=== PATIENT | male | born 1975 ===

== ENCOUNTER 2021-03-14 09:03 | Outpatient (CLI) | payer BC, SELFPAY ==
--- NOTE | 2021-03-30 12:28 | WPDHOMESLEEP ---
Sleep Study - Home Unattended Date of Study: 03/14/21 Ordering Provider: Paola Choudhury, PARajiv Interpreting Provider: Nichol Florian MD Home Sleep Study Type: Apnea Link Air Height: 1.8 m Weight: 92.079 kg Body Mass Index: 28.3 Neck Circumference (inches): 15.5 [place]: 2 Reason for Sleep Study Excessive daytime fatigue Sleep History Luis Carlos Trimble is a 45 year old male who says that he feels worn out all the time, and this has been going on for more than 2 years. He occasionally awakens from sleep feeling short of breath. He rarely awakens at night with heartburn, belching or coughing. He constantly snores and it is loud enough that others complain about it. He occasionally has trouble sleeping with a cold. He does not wake up gasping for breath at night. He constantly has breathing problems at night observed by others. He rarely sweats excessively night. He does not notice his heart pounding or beating irregularly at night. He does not fall asleep during the day, does not fall asleep involuntarily or while driving. He does not have loss of muscle tone with strong emotion. 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 He does not feel paralyzed on waking or falling asleep. He does not have vivid dreamlike scenes upon awakening or falling asleep. He does not feel afraid to go to sleep. He does not have nightmares. He occasionally remembers his dreams. He constantly has racing thoughts. He rarely feels sad or depressed. He frequently has anxiety. He rarely has muscular tension. He rarely notices parts of his body jerking. He does not kick at night. He denies having crawling and aching feelings in his legs. He does not have any kind of leg pain at night. He does not have morning jaw pain. He occasionally grinds his teeth during sleep and occasionally is bothered by pain during the day. He does not wake up due to pain during the night. He occasionally wakes up feeling stiff in the morning. He does not wake up with sore or achy muscles. He does not wake up with pain in the neck and spine. He has fatigue. He reports a weight gain of 8 lb during the last year. Bedtime is 10:00 p.m. falling asleep within 30 minutes, typically waking 1 or 2 times at night, and he is able to return to sleep in 5 minutes. His morning wake up time is 4:45 a.m.. On weekends, he stays awake until 10:00 p.m. or as late as 12 midnight, and wakes at 6:00 a.m.. He does not generally take naps. He is drowsy in the morning for 1 hour. He feels better in the afternoon compared to the morning. Habits: Tobacco: quit 2 years ago. Caffeine 2 servings a day. No alcohol or recreational drugs. 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 terbinafine HCL 250 mg a day Sleep Procedure This test was performed using 4 channel monitoring including respiratory effort channel, snoring channel, heart rate channel, and oxygen saturation channel. This study was scored using [facility] guidelines. Sleep Architecture Not applicable for home sleep test. Respiratory Analysis The recording time is 6 hours 56 minutes. Evaluation time is 6 hours and 42 minutes. The apnea-hypopnea index is 13. He had 7 obstructive apneas and 78 hypopneas. There is no evidence of Sedrick-Padilla respi
[2021-03-30 12:53] VITALS: BMI 28.3
== END 2021-03-14 09:04 | disposition home or self-care (01) ==
LOC: ANHCSM 09:05
PROVIDERS: PCP Physician Assistant; Visit Provider Physician Assistant
DX: G47.33 Obstructive sleep apnea (adult) (pediatric) (principal); G47.9 Sleep disorder, unspecified; I25.10 Atherosclerotic heart disease of native coronary artery without angina pectoris; I10 Essential (primary) hypertension; E78.5 Hyperlipidemia, unspecified; Z87.891 Personal history of nicotine dependence
CPT/HCPCS: 95806

== ENCOUNTER 2025-10-05 20:12 | Inpatient (IN) | payer BC, SELFPAY ==
--- NOTE | ~2025-10-05 | XR_ITS ---
EXAMINATION: XR chest 1V portable DATE: 10/05/2025 20:45 INDICATION: Possible VA. TECHNIQUE: A single frontal view of the chest was obtained. COMPARISON: None. FINDINGS: Size is normal. Lungs do not show acute findings. IMPRESSION: 1. No acute cardiopulmonary findings. Reviewed, dictated and finalized at location T. CLEANER HELPER
--- NOTE | 2025-10-05 20:14 | ECG_ITS ---
Test Date: 2025-10-05 20:19:13 Measurements Intervals [place] Rate: 61 P: 62 MA: 173 QRS: 40 QRSD: 112 T: 94 QT: 390 QTc: 395 Interpretive Statements SINUS RHYTHM INCOMPLETE RIGHT BUNDLE BRANCH BLOCK [90+ ms QRS DURATION, TERMINAL R IN V1/V2, 40+ ms S IN I/aVL/V4/V5/V6] INFERIOR MYOCARDIAL INFARCTION , POSSIBLY ACUTE [40+ ms Q WAVE AND/OR ST/T ABNORMALITY IN II/aVF] ACUTE NH No previous ECG available for comparison Electronically Signed On 10-05-2025 20:51:04 MANAGER ACUTE by Sophie Becerra M.D.
[2025-10-05] MEDS: ASPIRIN 81 MG CHEWABLE TABLET 324 MG PO (20:26)
--- NOTE | 2025-10-05 20:30 | ECG_ITS ---
Test Date: 2025-10-05 20:34:16 Measurements Intervals [place] Rate: 61 P: 55 [place]: 165 QRS: 35 QRSD: 114 T: 94 QT: 379 QTc: 382 Interpretive Statements SINUS RHYTHM INCOMPLETE RIGHT BUNDLE BRANCH BLOCK [90+ ms QRS DURATION, TERMINAL R IN V1/V2, 40+ ms S IN I/aVL/V4/V5/V6] INFERIOR MYOCARDIAL INFARCTION , OF INDETERMINATE AGE [40+ ms Q WAVE AND/OR ST/T ABNORMALITY IN II/aVF] ST DEPRESSION, CONSIDER SUBENDOCARDIAL INJURY [0.1+ mV ST DEPRESSION] Compared to ECG 10/05/2025 20:19:13 ST (T wave) deviation now present Myocardial infarct finding still present Electronically Signed On 10-05-2025 20:51:23 FLIGHT DATA TECHNICIAN by Sophie Becerra M.D.
--- NOTE | 2025-10-05 20:38 | ED_ITS ---
HPI - Chest Pain General Chief Complaint: Chest Pain Stated Complaint: CP Time Seen by Provider: 10/05/25 20:38 Source: patient and family Mode of arrival: ambulatory Limitations: no limitations History of Present Illness HPI narrative: 49 YEARS OLD WHITE MALE CAME TO THE ED BY PRIVATE CAR FROM HOME WITH HIS COMPLAINING OF RETROSTERNAL CHEST PRESSURE TIGHTNESS 5/10, NO RADIATION, NO AGGRAVATING OR RELIEVING FACTORS, PATIENT RECEIVED 1 NITRO GLYCERIN SUBLINGUAL PRIOR TO ARRIVAL, CHEST PAIN DROPPED TO 4/10. HISTORY OF CORONARY STENT CURRENTLY ON ASPIRIN AND ATORVASTATIN. PATIENT DENIES SMOKING OR DRINKING OR USING DRUGS. PATIENT DENIES SHORTNESS OF BREATH. 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 MUSCULOSKELETAL: NORMAL RANGE OF MOTION, NONTENDER BACK NEUROLOGIC: ALERT AND ORIENTED ?3, MANAGER LEADERSHIP DEVELOPMENT IS NORMAL TESTED, NO GROSS MOTOR DEFICIT Course Vital Signs Vital signs: Vital Signs Pulse Rate 58 L 10/05/25 20:40 Respiratory Rate 12 10/05/25 20:40 Blood Pressure 127/90 10/05/25 20:40 Pulse Oximetry 100 10/05/25 20:40 Oxygen Delivery Room Air 10/05/25 20:40 Pulse Rate 58 L 10/05/25 20:40 Respiratory Rate 12 10/05/25 20:40 Blood Pressure 127/90 10/05/25 20:40 Pulse Oximetry 100 10/05/25 20:40 Oxygen Delivery Room Air 10/05/25 20:40 MDM - Chest Pain MDM Narrative Medical decision making narrative: PATIENT CAME WITH CHEST PAIN AT REST VITAL SIGNS SHOWING HEART RATE OF 58 OTHERWISE WITHIN NORMAL LIMIT PHYSICAL EXAMINATION UNREMARKABLE. EKG ON ARRIVAL SHOWED STEMI, ACUTE INFERIOR MYOCARDIAL INFARCTION DIFFERENTIAL DIAGNOSIS: STEMI. SPASM ALL THE CORONARY ARTERY PATIENT PAIN RESOLVED DOWN TO 0/10, SUPERVISOR TRANSFERRING AND BOXING SHOWING NO ACUTE ABNORMALITY, REPEATED EKG SHOWED RESOLVED ST ELEVATION ST DEPRESSION AND INVERTED T-WAVE ONLY IN AVL OTHERWISE WITHIN NORMAL LIMIT STEMI WAS CALLED, INTERNAL COMBUSTION ENGINE INSPECTOR IN THE WAY TO THE CARDIAC CATHETERIZATION. HEPARIN STARTED, Differential Diagnosis Differential diagnosis: Likely other (STEMI, CORONARY SPASM) Medical Records Data Attestation: I reviewed the patient's medical records. Lab Data Attestation: I reviewed the patient's lab results. 10/05/25 20:31 10/05/25 20:31 Labs: Lab Results 10/05/25 10/05/25 Range/Units 20:31 20:46 WBC 15.6 H (4.5-10.0) K/mm3 RBC 5.10 (4.6-6.20) M/mm3 Hgb 14.9 (14.0-18.0) g/dL Hct 45.8 (42.0-52.0) % MCV 89.8 (80-100) fl MCH 29.2 (26-34) pg MCHC 32.5 (32-36) g/dl RDW 13.0 (11.5-14.5) % Plt Count 363 (150-375) k/mm3 MPV 9.2 (7.4-10.4) fl Immature Gran % (Auto) 0.4 (0-0.5) % Neut % (Auto) 58.3 (45.5-73.1) % Lymph % (Auto) 32.8 (18.3-44.2) % [place] % (Auto) 6.1 (2.6-8.5) % Eos % (Auto) 1.9 (0-4.4) % Baso % (Auto) 0.5 (0.2-1.2) % Lymph # (Auto) 5.13 H (0.9-3.2) K/mm3 [place] # (Auto) 1.0 H (0.1-0.6) K/mm3 Eos # (Auto) 0.3 (0-0.3) K/mm3 Baso # (Auto) 0.1 (0.0-0.1) K/mm3 Abs Immat Gran (auto) 0.06 H (0.00-0.031) K/mm3 Absolute Neuts (auto) 9.1 H (1.3-6.7) K/mm3 Absolute Nucleated RBC 0.000 (0.0-0.012) K/mm3 Nucleated RBC % 0.0 (0.0-0.2) % PT 12.4 (11.1-14.7) Seconds INR 0.9 APTT 24.5 (22.3-36.8) Seconds Sodium 137 (137-145) mmol/L Potassium 3.2 L (3.4-5.0) mmol/L Chloride 102 (98-107) mmol/L Carbon Dioxide 24 (22-30) mmol/L Anion Gap 11 (4-12) mmol/L BUN 20 (9-20) mg/dL Creatinine 1.13 (0.7-1.3) mg/dL Estim Creat Clear Calc 82 ml/min Estimated GFR > 60 (59 - ) Glucose 191 H (65-110) mg/dL Calcium 9.6 (8.4-10.2) mg/dL Total Bilirubin 0.6 (0.2-1.3) mg/dL AST 38 (17-59) U/L ALT 49 (6-50) U/L Alkaline Phosphatase 96 (38-126) U/L Troponin I 0.504 H* (0.000-0.034) ng/mL Total Protein 8.0 (6.3-8.2) g/dL Albumin 4.6 (3.5-5.1) g/dL Lipase 58 (23-300) U/L Nasal MRSA (PCR) Not detected (NOT DETECTE) Imaging Data Radiologist's impression: Impressions Chest X-Ray 10/05/25 20:49 IMPRESSION: 1. No acute cardiopulmonary findings. ECG Data EKG #1: Attestation: I personally reviewed and interpreted this ECG as follows: ECG completion date: 10/05/25 Prior ECG tracings: available for review Interpretation: STEMI, ST ELEVATION INFERIOR LEADS, ANTERIOR ST DEPRESSION INVERTED T-WAVES, HEART RATE 61 EKG #2: Attestation: I personally reviewed and interpreted this ECG as follows: ECG completion date: 10/05/25 ECG completion time: 20:56 Prior ECG tracings: available for review Interpretation: NORMAL SINUS RHYTHM AT 61 BEATS PER MINUTE, INCOMPLETE RIGHT BUNDLE-BRANCH BLOCK, IF YOU MYOCARDIAL INFARCTION OF INDETERMINATE AGE, COMPARED TO EKG EARLIER TODAY ST ELEVATION RESOLVED. Critical Care Time Critical Care Time Critical Care Time: No Discharge Plan Discharge Clinical Impression: ST elevation (STEMI) myocardial infarction Patient Disposition: Still a Patient Condition: Stable
[2025-10-05 20:39] LABS: Hematocrit 45.8 % (42.0-52.0); Hemoglobin 14.9 g/dL (14.0-18.0); Immature Granulocyte Percent A 0.4 % (0-0.5); Lymphocytes Absolute Auto 5.13 K/mm3 (0.9-3.2); Mean Corpuscular HGB Conc 32.5 g/dl (32-36); Mean Corpuscular Hemoglobin 29.2 pg (26-34); Mean Corpuscular Volume 89.8 fl (80-100); Nucleated Red Blood Cells Absolute Auto 0.000 K/mm3 (0.0-0.012); Nucleated Red Blood Cells Perc 0.0 % (0.0-0.2); Platelet Count Result 363 k/mm3 (150-375); Red Blood Count 5.10 M/mm3 (4.6-6.20); White Blood Count 15.6 K/mm3 (4.5-10.0)
[2025-10-05 20:40] VITALS: BP 127/90; PULSE 58; RESP 12; O2SAT 100
[2025-10-05] MEDS: ONDANSETRON INJ 4 MG/2 ML VIAL IV PUSH (20:52)
[2025-10-05] MEDS: MORPHINE SULFATE (*CRX) 4 MG/ML INJ IV PUSH (20:52)
[2025-10-05] MEDS: HEPARIN SOD/D5W 100 UNITS/ML 25,000 UNITS/250 ML BAG 10 UNITS IV CONT (20:53)
[2025-10-05 21:00] LABS: Alanine Aminotransferase 49 U/L (6-50); Albumin Level 4.6 g/dL (3.5-5.1); Alkaline Phosphatase 96 U/L (38-126); Anion Gap 11 mmol/L (4-12); Aspartate Amino Transferase 38 U/L (17-59); Bilirubin,Total 0.6 mg/dL (0.2-1.3); Blood Urea Nitrogen 20 mg/dL (9-20); Calcium 9.6 mg/dL (8.4-10.2); Carbon Dioxide 24 mmol/L (22-30); Chloride 102 mmol/L (98-107); Estimated CRCL calculation 82 ml/min; Estimated Glomerular Filt Rate > 60; Glucose 191 mg/dL (65-110); Lipase 58 U/L (23-300); Potassium 3.2 mmol/L (3.4-5.0); Sodium 137 mmol/L (137-145); Total Protein 8.0 g/dL (6.3-8.2)
[2025-10-05 21:02] LABS: INR 0.9; Prothrombin Time 12.4 Seconds (11.1-14.7)
[2025-10-05 21:03] LABS: Partial Thromboplastin Time 24.5 Seconds (22.3-36.8)
[2025-10-05 21:07] LABS: Troponin I 0.504 ng/mL (0.000-0.034)
--- NOTE | 2025-10-05 21:12 | P.CONCA_ITS ---
History of Present Illness History of Present Illness Consult date/time: 10/05/25 21:12 Requesting physician: Hernandez Jara MD Consult reason: chest pain Reason For Visit: CP Narrative: 41-year-old man with history of ST-elevation [place] (2019 status post PCI to distal co dominant have circumflex system), hypertension, and hyperlipidemia presented with chest pain. Substernal chest pain started about an hour prior to presentation and after receiving sublingual nitroglycerin by EMS felt mildly better however still having substernal chest discomfort. After receiving aspirin and heparin bolus well as in emergency room, his chest discomfort spontaneously improved significantly to almost resolved. 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 Home Medications and Allergies Allergies Allergy/AdvReac Type Severity Reaction Status Date / Time No Known Allergies Allergy Unverified 02/24/19 13:06 Vital Signs Vital Signs - 24 hr 10/05/25 20:40 Pulse Rate 58 L Respiratory Rate 12 Blood Pressure 127/90 Pulse Oximetry 100 Oxygen Delivery Room Air Results Labs and Meds 10/05/25 20:31 10/05/25 20:31 Lab results: Cardiac Enzymes 10/05/25 Range/Units 20:31 AST 38 (17-59) U/L Troponin I 0.504 H* (0.000-0.034) ng/mL Coagulation 10/05/25 Range/Units 20:31 PT 12.4 (11.1-14.7) Seconds APTT 24.5 (22.3-36.8) Seconds CBC 10/05/25 Range/Units 20:31 WBC 15.6 H (4.5-10.0) K/mm3 RBC 5.10 (4.6-6.20) M/mm3 Hgb 14.9 (14.0-18.0) g/dL Hct 45.8 (42.0-52.0) % Plt Count 363 (150-375) k/mm3 Lymph # (Auto) 5.13 H (0.9-3.2) K/mm3 [place] # (Auto) 1.0 H (0.1-0.6) K/mm3 Eos # (Auto) 0.3 (0-0.3) K/mm3 Baso # (Auto) 0.1 (0.0-0.1) K/mm3 Comprehensive Metabolic Panel 10/05/25 Range/Units 20:31 Sodium 137 (137-145) mmol/L Potassium 3.2 L (3.4-5.0) mmol/L Chloride 102 (98-107) mmol/L Carbon Dioxide 24 (22-30) mmol/L BUN 20 (9-20) mg/dL Creatinine 1.13 (0.7-1.3) mg/dL Glucose 191 H (65-110) mg/dL Calcium 9.6 (8.4-10.2) mg/dL AST 38 (17-59) U/L ALT 49 (6-50) U/L Alkaline Phosphatase 96 (38-126) U/L Total Protein 8.0 (6.3-8.2) g/dL Albumin 4.6 (3.5-5.1) g/dL Patient Weight 10/05/25 23:59 Weight 98.5 kg
--- NOTE | 2025-10-05 21:15 | PM.IMHP ---
H&P: HPI History of Present Illness Date/Time: 10/05/25 21:15 Chief Complaint: Chest pain Narrative: 49-year-old man with history of ST-elevation [place] (2019 status post PCI to distal codominant left circumflex system), hypertension, and hyperlipidemia presented with chest pain. Substernal chest pressure started about an hour prior to presentation. After receiving sublingual nitroglycerin, the pain improved however still present. While waiting in the emergency room after receiving aspirin and heparin bolus, his pain nearly resolved. Denies any shortness of breath. 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 Home Medications and Allergies Allergies Allergy/AdvReac Type Severity Reaction Status Date / Time No Known Allergies Allergy Unverified 02/24/19 13:06 Vital Signs Vital Signs - 24 hr 10/05/25 20:40 Pulse Rate 58 L Respiratory Rate 12 Blood Pressure 127/90 Pulse Oximetry 100 Oxygen Delivery Room Air Exam Const: General: comfortable HENMT: Mouth: Yes moist mucous membranes Eyes: EOM: EOMs intact bilaterally Neck: Neck: no JVD Resp: Effort & Inspection: normal respiratory effort Cardio: Rate: regular rate Rhythm: regular rhythm Heart sounds: no murmurs GI: GI Palp: Yes Soft to palpation Extrem: General: no pedal edema H&P: Results Labs Labs: Short CBC 10/05/25 Range/Units 20:31 WBC 15.6 H (4.5-10.0) K/mm3 Hgb 14.9 (14.0-18.0) g/dL Hct 45.8 (42.0-52.0) % Plt Count 363 (150-375) k/mm3 BMP 10/05/25 20:31 Sodium 137 Potassium 3.2 L Chloride 102 Carbon Dioxide 24 BUN 20 Creatinine 1.13 Glucose 191 H Calcium 9.6 Cardiac Enzymes 10/05/25 Range/Units 20:31 Troponin I 0.504 H* (0.000-0.034) ng/mL Liver Function 10/05/25 Range/Units 20:31 Total Bilirubin 0.6 (0.2-1.3) mg/dL AST 38 (17-59) U/L ALT 49 (6-50) U/L Alkaline Phosphatase 96 (38-126) U/L Albumin 4.6 (3.5-5.1) g/dL Assessment and Plan Assessment and plan (1) ST elevation (STEMI) myocardial infarction: Code(s): I21.3 - ST elevation (STEMI) myocardial infarction of unspecified site Status: Acute Plan 49-year-old man with history of ST-elevation [place] (2019 status post PCI to distal codominant left circumflex system), hypertension, and hyperlipidemia presented with chest pain. Substernal chest pressure started about an hour prior to presentation whose clinical presentation is concerning for inferior ST-elevation AL Inferior STEMI -we discussed the risk and benefits and recommendation to proceed for with left heart catheterization with possible PCI to which patient agreed -will emergently proceed with left heart catheterization with possible PCI -obtain transthoracic echocardiogram
--- NOTE | 2025-10-05 21:17 | WPDHPUPDATE1 ---
History and Physical Update Update Date/Time: 10/05/25 21:17 History and Physical has been reviewed, including an updated exam of the patient. There are NO changes in the patient's condition. Risks, benefits, and alternatives have been discussed and questions answered. Patient agrees to proceed with procedure.
--- NOTE | 2025-10-05 21:17 | WPDMODSED ---
Moderate Sedation Note-Pt Data Patient Data Allergies Allergy/AdvReac Type Severity Reaction Status Date / Time No Known Allergies Allergy Unverified 02/24/19 13:06 Current Medications: Active Medications Heparin Sodium (Porcine) (Heparin Sodium 5,000 Units/Ml Vial) 4,000 units IV PUSH PRN PRN PRN Reason: aPTT less than 55 seconds Heparin Sodium (Porcine) (Heparin Sodium 5,000 Units/Ml Vial) 3,500 units IV PUSH PRN PRN PRN Reason: aPTT 55 - 70 seconds Heparin Sodium/Dextrose (Heparin Sodium/D5w 100 Units/Ml) 25,000 units in 250 mls @ 10 mls/hr IV CONT .Q24H RONNIE; Protocol Last Admin: 10/05/25 20:53 Dose: 1,000 units/hr, 10 mls/hr Sedation/Anesthesia: No previous sedation/anesthesia problems (including family history). 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 Physical Exam Physical Exam Pre Procedural Exam: Normal: Lungs, Heart Size, Heart Rate and Heart Rhythm Hours since solid foods: 3 Hours since liquid intake: 3 Mallampati Classification: class III Internal Medicine - PN: Obj Da Vital Signs Vital Signs: Vital Signs - 24 hr 10/05/25 20:40 10/05/25 20:40 Pulse Rate 58 L Respiratory Rate 12 Blood Pressure 127/90 Pulse Oximetry 100 Oxygen Delivery Room Air Room Air Meds/Results Medications: Active Medications Generic Name Dose Route Start Last Admin Trade Name Freq PRN Reason Stop Dose Admin Heparin Sodium (Porcine) 4,000 units 10/05/25 20:38 Heparin Sodium 5,000 Units/Ml Vial IV PUSH PRN PRN aPTT less than 55 seconds Heparin Sodium (Porcine) 3,500 units 10/05/25 20:38 Heparin Sodium 5,000 Units/Ml Vial IV PUSH PRN PRN aPTT 55 - 70 seconds Heparin Sodium/Dextrose 25,000 units in 250 mls @ 10 mls/hr 10/05/25 20:40 10/05/25 20:53 Heparin Sodium/D5w 100 Units/Ml IV CONT 1,000 units/hr .Q24H RONNIE 10 mls/hr Protocol Administration 1,000 UNITS/HR Radiology Results: ITS Impressions Chest X-Ray 10/05/25 20:49 IMPRESSION: 1. No acute cardiopulmonary findings. Labs 10/05/25 20:31 10/05/25 20:31 Labs: Laboratory Results - last 24 hr 10/05/25 20:31 WBC 15.6 H RBC 5.10 Hgb 14.9 Hct 45.8 MCV 89.8 MCH 29.2 MCHC 32.5 RDW 13.0 Plt Count 363 MPV 9.2 Immature Gran % (Auto) 0.4 Neut % (Auto) 58.3 Lymph % (Auto) 32.8 [place] % (Auto) 6.1 Eos % (Auto) 1.9 Baso % (Auto) 0.5 Lymph # (Auto) 5.13 H [place] # (Auto) 1.0 H Eos # (Auto) 0.3 Baso # (Auto) 0.1 Abs Immat Gran (auto) 0.06 H Absolute Neuts (auto) 9.1 H Absolute Nucleated RBC 0.000 Nucleated RBC % 0.0 PT 12.4 INR 0.9 APTT 24.5 Sodium 137 Potassium 3.2 L Chloride 102 Carbon Dioxide 24 Anion Gap 11 BUN 20 Creatinine 1.13 Estim Creat Clear Calc 82 Estimated GFR > 60 Glucose 191 H Calcium 9.6 Total Bilirubin 0.6 AST 38 ALT 49 Alkaline Phosphatase 96 Troponin I 0.504 H* Total Protein 8.0 Albumin 4.6 Lipase 58 ASA Classification/Sedation ASA Classification/Sedation ASA Class: IV Emergent: Yes Risks: Risks, benefits and alternatives explained and patient/family accepted plan for sedation. Patient re-evaluated immediately prior to sedation.
[2025-10-05 22:03] LABS: MRSA (PCR) NOT DETECTED (NOT DETECTE)
--- NOTE | 2025-10-05 22:15 | P.PCNCC_ITS ---
Cardiac Cath Procedure Note Date of procedure:: 10/05/25 Performing physician:: CATHETERIZATION LABORATORY REPORT Procedure Date: 10/05/2025 Referring Physician: Dr. Jara Anesthesia: Versed and Fentanyl were ordered and given in my presence at 2125, procedure ended at 2206. Supervision of nurse, Jerod Hopper monitored moderate sedation with 2mg Versed and 200mcg Fentanyl was provided for 41 minutes. Pre-op Diagnosis: Inferior STEMI Post-op Diagnosis: Inferior STEMI Procedure(s): Left heart catheterization with coronary angiography Access Site: Right radial artery Brief History and Clinical Indications: 49-year-old man with history of ST-elevation SD (2019 status post PCI to distal codominant left circumflex system), hypertension, and hyperlipidemia presented with chest pain whose clinical presentation was concerning for inferior ST- elevation [place] All risks, benefits and alternatives to left heart catheterization with or without percutaneous coronary intervention was discussed at length with the patient. Risk of complications including but not limited to bleeding, infection, arrhythmia, stroke, worsening kidney function, blood loss, groin hematoma, limb loss, emergency coronary artery bypass grafting, and even were discussed with the patient and all questions were answered. The patient understood and wished to proceed. Time out called, patient name, date of , medical record number, allergies, procedure performed, identify Line Helper, patient and staff member concurred with accurate data, procedure carried on. Findings: LEFT HEART CATHETERIZATION FINDINGS: 1. Left main: The left main coronary artery has luminal irregularities. 2. Left anterior descending: The LAD and the diagonal branches have diffuse 10- 20% stenosis. 3. Left circumflex: The left circumflex is a nondominant vessel. The proximal left circumflex has diffuse 10% stenosis. There is a patent stent between the 1st OM and 2nd OM branch. The OM branches have luminal irregularities. 4. Right coronary artery: The RCA is a large dominant vessel that has a thromb otic 99% stenosis in its midbody. 5. Left ventricle: A. End-diastolic pressure 12 mmHg. B. LV gram deferred. C. No significant gradient across aortic valve on catheter pullback. 6. Opening AO pressure 97/63 and closing AO pressure 90/60 7. Right iliofemoral angiogram did not show any significant peripheral arterial disease in the visualized portions of the right iliac, right common femoral, and right superficial femoral/for fun the arteries. Description of Procedure: Informed consent signed and placed in the chart. Patient transferred to label drier room. Prepped and draped in usual sterile fashion. 2% lidocaine in right groin area. Micropuncture needle used to access right common femoral artery with Seldinger technique under fluoroscopic guidance. J wire advanced, micropuncture cannula placed and exchanged for a 6F sheath. JL4 diagnostic catheter engaged Left Main Coronary Artery. JR4 guide catheter crossed the aortic valve and after pull back, was used to engage the Right Coronary Artery. Multiple orthogonal angiogram obtained and reviewed Procedure Description for PCI: Heparin was used for anticoagulation (ACT maintained above 250) Patient loaded with heparin at 70 units/kg. 0.014 Runthrough coronary wire was passed in to the distal rPDA. A Joberator CAT Rx aspiration catheter was used. The lesion was then pre-dilated with a 2.0 x 20mm balloon inflated to 9atm. A 3.0 x 30mm [place] GERALD was successfully deployed into mid RCA; post dilated with a 3.5 x 20mm NC to high rosenda after IVUS assessment. Intracoronary NTG was administered. All intracoronary equipment was then removed under fluoroscopy. Follow-up angiograms showed an excellent result Pre-procedure - DARIUS 3 flow Post-procedure - DARIUS 3 flow No angiographic complications identified. Angio-Seal device was used for vascular closure at the end of the case. Assessment: Successful IVUS guided PCI of the mid RCA with 3.0 x 30mm [place] GERALD; post dilated with a 3.5 x 20mm NC to high rosenda with excellent results. Post Operative Condition: Stable No significant blood loss Disposition: ICU Plan: DAPT for a minimum of 1 year. Continue aggressive medical therapy and risk factor modification. Obtain TTE Ken Díaz Interventional Cardiology
--- NOTE | 2025-10-05 22:35 | ADMGEN ---
This patient, Luis Carlos Trimble, was admitted to Intensive Care Unit-5. Patient/family oriented to hospital policies and general routines including ID bracelet, bed and alarms, visiting hours, pain management, procedures, bathroom and other care routines, personal items, smoking policy, room service/diet, and visiting hours. Information on how to activate the Rapid Response Team has been discussed. Patient/Family are encouraged to report perceived risks to care and to ask questions if they do not understand what they are told or what they should do.
[2025-10-05 22:53] VITALS: BP 101/61; PULSE 65; RESP 16; O2SAT 94
[2025-10-05 22:57] VITALS: BP 123/62; PULSE 55; RESP 16; O2SAT 90
[2025-10-05] MEDS: SODIUM CHLORIDE 0.9% IV 600 ML 200 ML IV CONT (23:00)
[2025-10-05 23:15] VITALS: BP 105/59; PULSE 52; RESP 14; TEMP 37; O2SAT 92; BMI 30.9
[2025-10-05 23:41] VITALS: PULSE 52; RESP 14; O2SAT 92
[2025-10-05 23:56] LABS: Troponin I 11.200 ng/mL (0.000-0.034)
[2025-10-06] VITALS (24 sets, daily range): BP systolic 109–140; BP diastolic 49–108; PULSE 48–75; RESP 13–20; TEMP 36.7–36.9; O2SAT 93–99
[2025-10-06] MEDS: ATORVASTATIN 40 MG TABLET 80 MG PO
--- NOTE | 2025-10-06 | ECHO_ITS ---
Patient Info Name: Luis Carlos Trimble Age: 49 years : 1975 Gender: Male Ht: 69 in Wt: 217 lbs BSA: 2.22 m2 HR: 63 bpm BP: 140 / 89 mmHg Heart Rhythm: Sinus Rhythm Technical Quality: Good Exam Date: 10/06/2025 9:25 AM Patient Status: I Admit Date: 10/05/2025 Exam Type: CA echo doppler color flow Complete two-dimensional, color flow and Doppler transthoracic echocardiogram is performed. Staff Referring Physician: Dami Andujar MD Director Of Accounting: Doretha Grant Attending Provider: Ken Díaz Summary 1. Complete two-dimensional, color flow and Doppler transthoracic echocardiogram is performed. 2. Left ventricular chamber dimension is mildly enlarged. 3. Left ventricular systolic function is normal, estimated at 55-60. 4. There is no increased left ventricular wall thickness. 5. The left ventricular diastolic function is normal. 6. The basal anteroseptal, and mid anteroseptal are hypokinetic. 7. There is mild mitral valve regurgitation. 8. There is mild tricuspid valve regurgitation. Left Ventricle Left ventricular chamber dimension is mildly enlarged. Left ventricular systolic function is normal, estimated at 55-60. There is no increased left ventricular wall thickness. The left ventricular diastolic function is normal. The basal anteroseptal, and mid anteroseptal are hypokinetic. All other flores appear normal. Right Ventricle Right ventricular chamber dimension is normal. Right ventricular systolic function is normal. Left Atria Left atrial chamber dimension is normal. Right Atria Right atrial chamber dimension is normal. Atrial Septum Intact interatrial septum visualized by color flow imaging. Aortic Valve The aortic valve is trileaflet. There is mild aortic valve sclerosis. There is no aortic valve stenosis. There is trace aortic valve regurgitation. Pulmonic Valve The pulmonic valve is normal. There is no pulmonic valve stenosis. There is trace pulmonic regurgitation. Mitral Valve The mitral valve has normal leaflets. There is no mitral valve stenosis. There is mild mitral valve regurgitation. Tricuspid Valve The tricuspid valve leaflets are normal. There is no significant tricuspid valve stenosis. There is mild tricuspid valve regurgitation. Pericardium/Pleural The pericardium appears normal. There is no pericardial effusion. Inferior Vena Cava Normal inferior vena cava with >50% collapse upon inspiration consistent with normal right atrial pressure, 5 mmHg. Aorta The aortic root size at the sinus of Valsalva is normal. Left Ventricular Outflow Tract Name Value Normal LVOT 2D LVOT Diameter 2.0 cm LVOT Doppler LVOT Peak Velocity 157 cm/s LVOT Peak Gradient 10 mmHg LVOT Mean Gradient 5 mmHg LVOT VTI 31 cm LVOT Stroke Volume 97 ml LVOT CO 6.1 l/min LVOT CI 2.8 l/min/m2 Pulmonic Valve Name Value Normal RVOT Doppler RVOT Peak Velocity 72 cm/s RVOT Peak Gradient 2 mmHg PV Doppler PV Peak Velocity 102 cm/s PV Peak Gradient 4 mmHg Mitral Valve Name Value Normal MV Diastolic Function MV E Peak Velocity 73 cm/s MV A Peak Velocity 62 cm/s MV E/A 1.2 MV Decel Time (PW) 154 ms MV Annular TDI MV E/e' (Septal) 8.3 MV E/e' (Lateral) 6.1 MV E/e' (Average) 7.2 Tricuspid Valve Name Value Normal Estimated PAP/RSVP RA Pressure 5 mmHg <=5 Aortic Valve Name Value Normal AV Doppler AV Peak Velocity 159 cm/s AV Peak Gradient 10 mmHg AV Area (Cont Eq All) 3.1 cm2 AV DI (All) 0.99 AV Regurgitation 2D LVOT Area 3.2 cm2 Ventricles Name Value Normal LV Dimensions 2D/MM IVS Diastolic Thickness (2D) 0.7 cm 0.6-1.0 LVID Diastole (2D) 6.0 cm 4.2-5.8 LVIW Diastolic Thickness (2D) 0.8 cm 0.6-1.0 LVID Systole (2D) 3.8 cm 2.5-4.0 LVOT Diameter 2.0 cm LV Mass (2D Cubed) 172.47 g 88.00-224.00 LV Mass Index (2D Cubed) 78 g/m2 49-115 Relative Wall Thickness (2D) 0.27 <=0.42 LV Fractional Shortening/Ejection Fraction 2D/MM LV Fractional Shortening (2D) 38 % 25-43 LV EF (2D Teichholz) 67 % LV Diastolic Volume (4C MOD) 128 ml LV EF (4C MOD) 56 % LV Diastolic Volume (2C MOD) 123 ml LV EF (2C MOD) 60 % LV Diastolic Volume (BP MOD) 127 ml 62-150 LV Diastolic Volume Index (BP MOD) 57 ml/m2 34-74 LV Systolic Volume (BP MOD) 53 ml 21-61 LV Systolic Volume Index (BP MOD) 24 ml/m2 11-31 LV EF (BP MOD) 59 % 52-72 LV Diastolic Length (4C) 8.7 cm LV Systolic Length (4C) 7.3 cm LV Stroke Volume (4C MOD) 72 ml Atria Name Value Normal LA Dimensions LA Volume (4C A-L) 42 ml LA Volume (BP A-L) 37 ml RA Dimensions RA Systolic [place] Length (4C) 4.9 cm 2.1-2.7 RA Area (4C) 13.1 cm2 <=18.0 Wall Motion Scoring Wall Motion Scoring Index: 1.12 Report Signatures
--- OUTSIDE RECORDS SUMMARY | 2025-10-06 02:22 | XMS_ITS | Clinical Summary ---
Author Organization [facility] Address [address] [place] [id number] Care Team Providers Care Warp Preparer Name Role Phone Unavailable Primary Care Provider Unavailabl e Social History Tobacco Use Types Packs/Day Years Used Date Smoking Tobacco: Never Assessed Sex and Gender Information Value Date Recorded Sex Assigned at Not on file Legal Sex Male 5:20 PM CDT Gender Identity Not on file Sexual Orientation Not on file Plan of Treatment Health Maintenance Due Date Last Done Comments Colorectal Cancer Screening Colonoscopy (10 Years) 1976 Annual Physical 1979 Hepatitis C 1994 DTaP, Tdap and Td Vaccines ( 1 - Tdap) 1995 Hepatitis B Vaccines (1 of 3 - 19+ 3-dose series) 1995 COVID-19 Vaccine (2024-2 6 season) 2025 Influenza Adult (#1) 2025 Hepatitis A Vaccines Aged Out No long er eligible based on patient's age to complete this topic Meningococcal B Vaccine Aged Out No l onger eligible based on patient's age to complete this topic Meningococcal Vaccine Aged Out No marie tami eligible based on patient's age to complete this topic Pneumococcal Vaccine: Pediat rics (0 to 5 Years) and At-Risk Patients (6 to 49 Years) Aged Out No longer eligible b ased on patient's age to complete this topic RSV Immunizations Under 20 Months Aged Out No longer eligible based on patient's age to complete this topic
[2025-10-06 02:32] LABS: Hematocrit 42.9 % (42.0-52.0); Hemoglobin 14.2 g/dL (14.0-18.0); Immature Granulocyte Percent A 0.3 % (0-0.5); Lymphocytes Absolute Auto 2.63 K/mm3 (0.9-3.2); Mean Corpuscular HGB Conc 33.1 g/dl (32-36); Mean Corpuscular Hemoglobin 29.8 pg (26-34); Mean Corpuscular Volume 90.1 fl (80-100); Nucleated Red Blood Cells Absolute Auto 0.000 K/mm3 (0.0-0.012); Nucleated Red Blood Cells Perc 0.0 % (0.0-0.2); Platelet Count Result 283 k/mm3 (150-375); Red Blood Count 4.76 M/mm3 (4.6-6.20); White Blood Count 12.6 K/mm3 (4.5-10.0)
[2025-10-06 02:45] LABS: Cholesterol 197 mg/dL (0-200); HDL Direct 43 mg/dL; Triglycerides 189 mg/dL (<150)
[2025-10-06 03:01] LABS: Troponin I 25.000 ng/mL (0.000-0.034)
--- NOTE | 2025-10-06 07:00 | ECG_ITS ---
Test Date: 2025-10-06 09:02:31 Measurements Intervals [place] Rate: 59 P: 53 GA: 168 QRS: -9 QRSD: 113 T: 50 QT: 410 QTc: 409 Interpretive Statements SINUS BRADYCARDIA INFERIOR MYOCARDIAL INFARCTION , PROBABLY OLD [40+ ms Q WAVE AND/OR ST/T ABNORMALITY IN II/aVF] ABNORMAL ECG Electronically Signed On 10-06-2025 15:50:59 BLOCK MACHINE OPERATOR by Moi Jensen M.D.
[2025-10-06] MEDS: TICAGRELOR 90 MG TABLET PO ×2 (08:38→20:04)
[2025-10-06] MEDS: ASPIRIN 81 MG ENTERIC TABLET PO (08:38)
[2025-10-06] MEDS: POTASSIUM CHLORIDE 20 MEQ ER TABLET 40 MEQ PO (08:38)
--- NOTE | 2025-10-06 08:42 | PM.PNCARD ---
Progress Note: A&P Assessment and Plan (1) ST elevation (STEMI) myocardial infarction: Code(s): I21.3 - ST elevation (STEMI) myocardial infarction of unspecified site Status: Acute (2) Coronary artery disease: Code(s): I25.10 - Atherosclerotic heart disease of nikolai coronary artery without angina pectoris Status: Acute (3) Obstructive sleep apnea: Code(s): G47.33 - Obstructive sleep apnea (adult) (pediatric) Status: Acute Plan 49-year-old man with history of ST-elevation [place] (2019 status post PCI to distal codominant left circumflex system), hypertension, and hyperlipidemia presented with chest pain. Substernal chest pressure started about an hour prior to presentation whose clinical presentation is concerning for inferior ST-elevation [place] Inferior STEMI -status post PCI/GERALD x1 to mid RCA with excellent result. -continue dap 2 with Brilinta for least 1 year, aspirin indefinitely. -continue high-intensity statin -echocardiogram is pending -out of bed, ambulate today. -will send referral for cardiac rehab -he can downgrade to IMU status today -anticipate discharge tomorrow as long as he remains stable Subjective Date/time seen: 10/06/25 08:42 Interval history: Cardiology follow up visit for STEMI Date of service 10/06/2025: He is feeling well this morning and denies any chest pain, shortness of breath, palpitations. Telemetry is stable with no significant arrhythmias. Review of Systems Review of Systems: All systems reviewed & are unremarkable except as noted in HPI and below Constitutional: Constitutional: Reports no additional constitutional complaints Cardiovascular: Cardiovascular: Reports as per HPI Respiratory: Respiratory: Reports as per HPI Exam Const: General: comfortable HENMT: Mouth: Yes moist mucous membranes Eyes: EOM: EOMs intact bilaterally Neck: Neck: no JVD Resp: Effort & Inspection: normal respiratory effort Cardio: Rate: regular rate Rhythm: regular rhythm Heart sounds: no murmurs Extrem: General: no pedal edema Other: Peripheral pulses are intact. Right groin arterial access site free from bleeding, hematoma. Psych: Appearance: grossly normal Mental Status: mental status grossly normal Objective Data Vital Signs Vital Signs: Vital Signs - 24 hr 10/05/25 20:40 10/05/25 20:40 10/05/25 22:53 Temperature Pulse Rate 58 L 65 Pulse Rate [Monitor] Respiratory Rate 12 16 Blood Pressure 127/90 101/61 Pulse Oximetry 100 94 Oxygen Delivery Room Air Room Air Fraction of Inspired Oxygen 10/05/25 22:57 10/05/25 23:15 10/05/25 23:41 Temperature 37.0 C Pulse Rate 55 L 52 L 52 L Pulse Rate [Monitor] Respiratory Rate 16 14 14 Blood Pressure 123/62 105/59 L Pulse Oximetry 90 92 92 Oxygen Delivery Room Air Fraction of Inspired Oxygen 10/05/25 23:41 10/06/25 00:00 10/06/25 00:00 Temperature Pulse Rate 52 L 64 55 L Pulse Rate [Monitor] Respiratory Rate 20 Blood Pressure Pulse Oximetry 96 Oxygen Delivery Autopap Fraction of Inspired Oxygen 21 10/06/25 00:00 10/06/25 00:57 10/06/25 01:24 Temperature Pulse Rate 55 L 53 L 64 Pulse Rate [Monitor] Respiratory Rate 14 16 20 Blood Pressure 113/70 120/66 Pulse Oximetry 93 95 96 Oxygen Delivery CPAP Fraction of Inspired Oxygen 21 10/06/25 01:28 10/06/25 01:57 10/06/25 02:00 Temperature Pulse Rate 64 55 L 48 L Pulse Rate [Monitor] Respiratory Rate 18 Blood Pressure 109/67 Pulse Oximetry 96 96 Oxygen Delivery Autopap Fraction of Inspired Oxygen 10/06/25 02:57 10/06/25 03:00 10/06/25 03:49 Temperature Pulse Rate 53 L 52 L 55 L Pulse Rate [Monitor] 53 L 53 L Respiratory Rate 16 16 16 Blood Pressure 117/72 118/72 Pulse Oximetry 97 97 Oxygen Delivery Fraction of Inspired Oxygen 10/06/25 04:00 10/06/25 04:00 10/06/25 04:00 Temperature 36.8 C Pulse Rate 55 L 55 L 50 L Pulse Rate [Monitor] Respiratory Rate 16 14 Blood Pressure 140/89 Pulse Oximetry 97 97 Oxygen Delivery Room Air Fraction of Inspired Oxygen 10/06/25 06:00 10/06/25 06:00 10/06/25 07:55 Temperature 36.8 C Pulse Rate 52 L 52 L 73 Pulse Rate [Monitor] Respiratory Rate 16 20 Blood Pressure Pulse Oximetry 99 Oxygen Delivery Room Air Fraction of Inspired Oxygen Intake/Output Intake/Output: Intake & Output 10/03/25 10/04/25 10/05/25 10/06/25 23:59 23:59 23:59 23:59 Output Total 430 Balance -430 Meds/Results Medications: Active Medications Generic Name Dose Route Start Last Admin Trade Name Freq PRN Reason Stop Dose Admin Aspirin 81 mg 10/06/25 09:00 10/06/25 08:38 Aspirin 81 Mg Enteric Tablet PO 81 mg QAM RONNIE Administration Atorvastatin Calcium 80 mg 10/06/25 21:00 10/06/25 00:00 Atorvastatin 40 Mg Tablet PO 80 mg QHS RONNIE Administration Perflutren Lipid Microsphere 0 ml 10/05/25 22:14 Perflutren Lipid Microspheres 1.5 Ml Vial Diluted To 10 Ml Total Volume IV PUSH 10/08/25 22:15 ONCE PRN adequate visualization Protocol Ticagrelor 90 mg 10/06/25 09:00 10/06/25 08:38 Ticagrelor 90 Mg Tablet PO 90 mg Q12HR RONNIE Administration Radiology Results: ITS Impressions Chest X-Ray 10/05/25 20:49 IMPRESSION: 1. No acute cardiopulmonary findings. Labs Labs: Laboratory Results - last 24 hr 10/05/25 10/05/25 10/05/25 20:31 20:46 23:17 WBC 15.6 H RBC 5.10 Hgb 14.9 Hct 45.8 MCV 89.8 MCH 29.2 MCHC 32.5 RDW 13.0 Plt Count 363 MPV 9.2 Immature Gran % (Auto) 0.4 Neut % (Auto) 58.3 Lymph % (Auto) 32.8 [place] % (Auto) 6.1 Eos % (Auto) 1.9 Baso % (Auto) 0.5 Lymph # (Auto) 5.13 H [place] # (Auto) 1.0 H Eos # (Auto) 0.3 Baso # (Auto) 0.1 Abs Immat Gran (auto) 0.06 H Absolute Neuts (auto) 9.1 H Absolute Nucleated RBC 0.000 Nucleated RBC % 0.0 PT 12.4 INR 0.9 APTT 24.5 Sodium 137 Potassium 3.2 L Chloride 102 Carbon Dioxide 24 Anion Gap 11 BUN 20 Creatinine 1.13 Estim Creat Clear Calc 82 Estimated GFR > 60 Glucose 191 H Calcium 9.6 Total Bilirubin 0.6 AST 38 ALT 49 Alkaline Phosphatase 96 Troponin I 0.504 H* 11.200 H* D Total Protein 8.0 Albumin 4.6 Triglycerides Cholesterol LDL Cholesterol Direct HDL Direct Lipase 58 Nasal MRSA (PCR) Not detected 10/06/25 02:28 WBC 12.6 H RBC 4.76 Hgb 14.2 Hct 42.9 MCV 90.1 MCH 29.8 MCHC 33.1 RDW 13.1 Plt Count 283 MPV 9.1 Immature Gran % (Auto) 0.3 Neut % (Auto) 73.2 H Lymph % (Auto) 20.9 [place] % (Auto) 4.8 Eos % (Auto) 0.3 Baso % (Auto) 0.5 Lymph # (Auto) 2.63 [place] # (Auto) 0.6 Eos # (Auto) 0.0 Baso # (Auto) 0.1 Abs Immat Gran (auto) 0.04 H Absolute Neuts (auto) 9.2 H Absolute Nucleated RBC 0.000 Nucleated RBC % 0.0 PT INR APTT Sodium Potassium Chloride Carbon Dioxide Anion Gap BUN Creatinine Estim Creat Clear Calc Estimated GFR Glucose Calcium Total Bilirubin AST ALT Alkaline Phosphatase Troponin I 25.000 H* D Total Protein Albumin Triglycerides 189 H Cholesterol 197 LDL Cholesterol Direct 119 HDL Direct 43 Lipase Nasal MRSA (PCR)
--- NOTE | 2025-10-06 09:49 | P.CONIN_ITS ---
Assessment and Plan Assessment and plan (1) ST elevation (STEMI) myocardial infarction: Code(s): I21.3 - ST elevation (STEMI) myocardial infarction of unspecified site Status: Acute Assessment and Plan: 10/06: Presented with chest pain, and EKG showed inferior ST elevation myocardial injury status PTCA/PCI with GERALD x1 to mid RCA -continue dual antiplatelet therapy with aspirin and Brilinta -continue statin and Coreg per Cardiology -cardiology following the patient (2) Coronary artery disease: Code(s): I25.10 - Atherosclerotic heart disease of [place] coronary artery without angina pectoris Status: Acute Assessment and Plan: As above (3) Mixed hyperlipidemia: Code(s): E78.2 - Mixed hyperlipidemia Status: Acute Assessment and Plan: Continue statin Plan DVT prophylaxis: Status post cardiac catheterization Stress ulcer prophylaxis: Not indicated Nutrition: Heart healthy diet Code Status: Full code Critical Care Time Spent: 45 minutes Discuss with Cardiology Due to a high probability of clinically significant, life threatening deterioration, the patient required my highest level of preparedness to intervene emergently and I personally spent this critical care time directly and personally managing the patient. This critical care time included obtaining a history; examining the patient; pulse oximetry; ordering and review of studies; arranging urgent treatment with development of a management plan; evaluation of patient's response to treatment; frequent reassessment; and discussions with other providers. It was exclusive of separately billable procedures and treating other patients and teaching time. Please see Assessment and Plan section and the rest of the note for further information on patient assessment and treatment This dictation may have been done utilizing a voice recognition system. Attempts have been made to correct errors. However, there may be uncorrected grammatical, spelling, and recognitions errors present. Senior Litigation Paralegal Consult Note Consult date: 10/06/25 Reason for consult: Chest pain, STEMI, status post PTCA/PCI with GERALD x1 to mid RCA, HPI: Luis Carlos Trimble is a 49 year old male with past medical history of hypertension, hyperlipidemia, history of coronary artery disease post PCI to distal codominant left circumflex in 2019 presented to the ED on 10/05/2025 with complains of chest pain patient stated that he had substernal chest pain which shortness of breath, diaphoresis. It was relieved with sub lingual nitroglycerin but reoccurred while he was in the waiting room in the emergency. He received aspirin, heparin bolus. EKG showed inferior ST elevation RI in leads 3 and AVF, with reciprocal changes in leads V 1 to V 2. Code STEMI was activated, patient was taken to the cardiac laboratory technician where he was found to have 99% occlusion of mid RCA, status post PTCA/PCI with GERALD x1 to mid RCA. Patient was started on aspirin, atorvastatin, carvedilol, ticagrelor and transfer the ICU for further management. Patient seen and examined the ICU this morning, is awake, alert, oriented, nonfocal. Denies any chest pain, shortness with, abdominal pain, nausea, vomiting. Hemodynamically stable., requesting to go home Review of Systems 2 Review of Systems: All systems reviewed & are unremarkable except as noted in HPI and below PMFSH Past Medical History Medical History (Updated 10/06/25 @ 09:58 by Cali Schumacher MD) Hypertension Fatigue Mixed hyperlipidemia Seasonal allergies Coronary artery disease Family History Family History Mother Elevated cholesterol Social History Social History Smoking status: Former smoker Smoking end date: 02/17/19 Alcohol intake: never Drinks per week: 0 Substance use: never Lack of Transportation: No Lack of Food: Never True Current Housing: I Have Housing Concerned About Future Housing: No Difficulty Paying Gas/Electric Bills: No Difficulty Paying for Meds: No Currently Unemployed: No Education: High School Diploma/GED Difficulty w/ Childcare or Family Care: No Occupation/Education: occupation 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 Spiritual care concerns: No Meds Home Medications and Allergies Home Medications ?Medication ?Instructions ?Recorded ?Confirmed ?Type atorvastatin 80 mg tablet 80 mg PO QPM 10/06/25 History ticagrelor 90 mg tablet (Brilinta) 90 mg PO Q12HR 90 d ays #180 tabs 10/06/25 Rx Allergies Allergy/AdvReac Type Severity Reaction Status Date / Time No Known Allergies Allergy Verified 10/05/25 23:12 Vital Signs Vital Signs - 24 hr 10/05/25 20:40 10/05/25 20:40 10/05/25 22:53 Temperature Pulse Rate 58 L 65 Pulse Rate [Monitor] Respiratory Rate 12 16 Blood Pressure 127/90 101/61 Pulse Oximetry 100 94 Oxygen Delivery Room Air Room Air Fraction of Inspired Oxygen 10/05/25 22:57 10/05/25 23:15 10/05/25 23:41 Temperature 98.6 F Pulse Rate 55 L 52 L 52 L Pulse Rate [Monitor] Respiratory Rate 16 14 14 Blood Pressure 123/62 105/59 L Pulse Oximetry 90 92 92 Oxygen Delivery Room Air Fraction of Inspired Oxygen 10/05/25 23:41 10/06/25 00:00 10/06/25 00:00 Temperature Pulse Rate 52 L 64 55 L Pulse Rate [Monitor] Respiratory Rate 20 Blood Pressure Pulse Oximetry 96 Oxygen Delivery Autopap Fraction of Inspired Oxygen 21 10/06/25 00:00 10/06/25 00:57 10/06/25 01:24 Temperature Pulse Rate 55 L 53 L 64 Pulse Rate [Monitor] Respiratory Rate 14 16 20 Blood Pressure 113/70 120/66 Pulse Oximetry 93 95 96 Oxygen Delivery CPAP Fraction of Inspired Oxygen 21 10/06/25 01:28 10/06/25 01:57 10/06/25 02:00 Temperature Pulse Rate 64 55 L 48 L Pulse Rate [Monitor] Respiratory Rate 18 Blood Pressure 109/67 Pulse Oximetry 96 96 Oxygen Delivery Autopap Fraction of Inspired Oxygen 10/06/25 02:57 10/06/25 03:00 10/06/25 03:49 Temperature Pulse Rate 53 L 52 L 55 L Pulse Rate [Monitor] 53 L 53 L Respiratory Rate 16 16 16 Blood Pressure 117/72 118/72 Pulse Oximetry 97 97 Oxygen Delivery Fraction of Inspired Oxygen 10/06/25 04:00 10/06/25 04:00 10/06/25 04:00 Temperature 98.2 F Pulse Rate 55 L 55 L 50 L Pulse Rate [Monitor] Respiratory Rate 16 14 Blood Pressure 140/89 Pulse Oximetry 97 97 Oxygen Delivery Room Air Fraction of Inspired Oxygen 10/06/25 06:00 10/06/25 06:00 10/06/25 07:55 Temperature 98.2 F Pulse Rate 52 L 52 L 73 Pulse Rate [Monitor] Respiratory Rate 16 20 Blood Pressure Pulse Oximetry 99 Oxygen Delivery Room Air Fraction of Inspired Oxygen 10/06/25 08:00 10/06/25 09:00 Temperature 98.0 F 98.3 F Pulse Rate 71 62 Pulse Rate [Monitor] Respiratory Rate 19 14 Blood Pressure 133/71 126/67 Pulse Oximetry 99 97 Oxygen Delivery Fraction of Inspired Oxygen Exam 2 Narrative: General: Pleasant gentleman in no acute distress HEENT:? Pupils equal and reactive, sclera is clear, moist oral mucosa Neck:? Supple Respiratory:? Clear to auscultation bilaterally, no wheezing, adequate air entry Cardiac:? S1-S2 is normal, regular rate and rhythm Abdomen:? Soft, nontender, nondistended, normoactive bowel sound Extremities:? Right groin site without any evidence of hematoma or ecchymosis Neuro:? Awake, alert, oriented x3, nonfocal Skin:? No lesions noted Psych:? Normal mentation and affect Results Labs 10/06/25 02:28 10/05/25 20:31 Labs: Short CBC 10/05/25 10/06/25 Range/Units 20:31 02:28 WBC 15.6 H 12.6 H (4.5-10.0) K/mm3 Hgb 14.9 14.2 (14.0-18.0) g/dL Hct 45.8 42.9 (42.0-52.0) % Plt Count 363 283 (150-375) k/mm3 BMP 10/05/25 20:31 Sodium 137 Potassium 3.2 L Chloride 102 Carbon Dioxide 24 BUN 20 Creatinine 1.13 Glucose 191 H Calcium 9.6 Cardiac Enzymes 10/05/25 10/05/25 10/06/25 Range/Units 20:31 23:17 02:28 Troponin I 0.504 H* 11.200 H* D 25.000 H* D (0.000-0.034) ng/mL Liver Function 10/05/25 Range/Units 20:31 Total Bilirubin 0.6 (0.2-1.3) mg/dL AST 38 (17-59) U/L ALT 49 (6-50) U/L Alkaline Phosphatase 96 (38-126) U/L Albumin 4.6 (3.5-5.1) g/dL
--- NOTE | 2025-10-06 18:57 | PC.NURSE ---
obtained Kathy from [facility]. This RN informed pt's that the medication can now be taken home.
[2025-10-07] VITALS (9 sets, daily range): BP systolic 108–110; BP diastolic 59–81; PULSE 49–72; RESP 12–17; TEMP 36.9; O2SAT 95–97
[2025-10-07] MEDS: TICAGRELOR 90 MG TABLET PO (08:55)
[2025-10-07] MEDS: ASPIRIN 81 MG ENTERIC TABLET PO (08:55)
--- NOTE | 2025-10-07 10:18 | P.DS_ITS ---
DS: Admitting Diagnosis Discharge Date 10/07/25 Admitting Diagnosis STEMI DS: Discharge Diagnosis Discharge Diagnosis (1) ST elevation (STEMI) myocardial infarction: Code(s): I21.3 - ST elevation (STEMI) myocardial infarction of unspecified site Status: Acute Assessment and Plan: * s/p GERALD to RCA * continue aspirin, brilinta, coreg and atorvastatin * EF of 55-60% per echo (2) Coronary artery disease: Code(s): I25.10 - Atherosclerotic heart disease of [place] coronary artery without angina pectoris Status: Acute (3) Hypertension: Code(s): I10 - Essential (primary) hypertension Status: Acute Assessment and Plan: * controlled continue low dose coreg 3.125 mg BID (4) Mixed hyperlipidemia: Code(s): E78.2 - Mixed hyperlipidemia Status: Acute Assessment and Plan: * on atorvastatin 80 mg nightly DS: Summary Hospital Course Reason for hospitalization: STEMI Hospital Course: Luis Carlos Joseph is a 49-year-old male with history of ST-elevation NM (2019 status post PCI to distal codominant left circumflex system), hypertension, and hyperlipidemia presented with chest pain whose clinical presentation was concerning for inferior ST-elevation NM. He was taken emergently to label maker per Dr. Díaz. He was found to have 99% thrombotic lesion of the mid RCA and underwent GERALD placement. Details of procedure can be found in Dr. Díaz's dictation. After the procedure he was taken to the ICU where he has remained in stable condition. Echo was done and demonstrated EF of 55-60% with mid anterospetal and basal anteroseptal hypokinesis noted. He has been up in room and overall feeling well. No recurrent chest pain or pressure. No shortness of breath. He is stable for discharge home today. Discharge instructions provided to patient and understanding was verbalized. Status at Discharge Functional status at discharge: independent ambulation Overall status at discharge: patient is back to baseline Time Spent with Patient Time attestation: Total time spent providing and/or coordinating discharge services: Time spent: Less than 30 minutes Exam Narrative: Gen: Alert and oriented x 3. NAD Resp: lungs CTAB CV: S1, S2 GI: abd soft non-tender Ext: no edema. Rt groin S/D/I without hematoma DS: Data Data Completed and Pending Completed studies during hospitalization: cardiac cath echocardiogram Discharge Plan Discharge Attending physician on discharge: Luis Carlos Muro Discharging Clinician: Gianna Nguyen Anticipated Discharge Date/Time: 10/07/25 10:11 Patient Disposition: Home Activity: may shower Diet: heart healthy Wound Care Instructions: other - see discharge instructions Discharge Instructions: [facility] [address] [place] [address] DISCHARGE INSTRUCTIONS - POST PCI Activity 1. No driving until__2 days post procedure___. 2. No lifting, pushing or pulling more than 10 pounds for 1 week. 3. No strenuous exercise or activity (including sexual activity) until you are released to do so. 4. May shower but no tub baths or swimming pool for 1 week. Avoid commercial hot tubs. They are too hot. Medications DO NOT STOP YOUR MEDICATIONS ONLY YOUR DISABILITY COUNSELOR CAN STOP THE FOLLOWING MEDICATIONS - PLEASE CALL THE OFFICE WITH QUESTIONS. *Aspirin *Ticagrelor (Brilinta) *Atorvastatin *Lisinopril or ARB *Metoprolol Important Reminders 1. Keep your stent card in your wallet at all times 2. Follow a heart healthy diet paying extra attention to cholesterol and fats. 3. Stay hydrated. 4. If you have chest pain unrelieved by rest or nitroglycerin (if prescribed) call 911 immediately. 5. If you miss one dose of Brilinta (if prescribed) take a tablet at the next time due. If you miss 2 doses take a tablet when you remember and resume at the next time due. *For any other questions please call the office at [phone]. Office hours are 8AM 4:30PM Sunday through Sunday. Patient Instructions: Antibiotic Form, Aspirin (By mouth), Atorvastatin (By mouth), Ticagrelor (By mouth), Heart Attack (DC), Heart Attack (GEN), Heart Healthy Diet (DC) Patient Language: Sammarinese Stand Alone Forms: General Discharge Information Follow-up/Referrals: Macey,MERCY David [Primary Care Provider, Unknown] Discharge Medications: New ticagrelor [Brilinta] 90 mg Tablet 90 mg PO Q12HR 90 Days Qty: 180 3RF carvedilol [Coreg] 3.125 mg Tablet 3.125 mg PO Q12HR Qty: 180 2RF aspirin 81 mg Tablet,Delayed Release (/Ec) 81 mg PO QAM Qty: 90 0RF Continued atorvastatin 80 mg tablet 80 mg PO QPM Date of admission: 10/05/25 22:37 Primary Care Provider: MaceyJoann Admitting Provider: Ken Díaz Attending physician on admission: Ken Díaz Condition: Stable
== END 2025-10-07 10:54 | disposition home or self-care (01) | DRG 322 ==
LOC: ANHED 20:47 → ANHSURGERY 20:49 → ANHICU 10-06 00:31
PROVIDERS: Emergency Medicine; Admitting Provider Internal Medicine; Emergency Provider Emergency Medicine; PCP Physician Assistant; Visit Provider Specialist
PROC: 4A023N7 Measurement of Cardiac Sampling and Pressure, Left Heart, Percutaneous Approach (ICD-10-PCS; CPT 93452; principal; 2025-10-05 20:50)
PROC: 02703DZ Dilation of Coronary Artery, One Artery with Intraluminal Device, Percutaneous Approach (ICD-10-PCS; 2025-10-05 20:50)
PROC: 027034Z Dilation of Coronary Artery, One Artery with Drug-eluting Intraluminal Device, Percutaneous Approach (ICD-10-PCS; CPT 92928; 2025-10-05 20:50)
PROC: 02703DZ Dilation of Coronary Artery, One Artery with Intraluminal Device, Percutaneous Approach (ICD-10-PCS; 2025-10-05 20:50)
DX: I21.11 ST elevation (STEMI) myocardial infarction involving right coronary artery (principal); I25.10 Atherosclerotic heart disease of native coronary artery without angina pectoris; I10 Essential (primary) hypertension; E78.2 Mixed hyperlipidemia; G47.33 Obstructive sleep apnea (adult) (pediatric); Z79.82 Long term (current) use of aspirin; Z87.891 Personal history of nicotine dependence; Z95.5 Presence of coronary angioplasty implant and graft
CPT/HCPCS: 36415; 71045; 80053; 80061; 83690; 84484; 85025; 85610; 85730; 87641; 92978; 93005; 93306; 93458; 96374; 96375; 99285; A9270; C1725; C1753; C1757; C1760; C1769; C1874; C1887; C1894; C9606; G0269; J1644; J2003; J2250; J2270; J2371; J2405; J3010; J7030; J7040